=== PATIENT | female | born 1950 | race Caucasian/White ===

== ENCOUNTER 2025-09-08 09:16 | Observation (INO) ==
--- NOTE | 2025-08-05 12:58 | PAT Medication Instructions ---
Medication Instructions Date of Service August 05, 2025 Home Medications Medication Instructions Recorded albuterol sulfate 90 mcg/actuation See Rx Instructions inhalation 12/12/24 aerosol inhaler (Ventolin HFA) .COMPLEX PRN shortness of breath or wheezing #18 grams triamcinolone acetonide 0.1 % 1 applic topical .COMPLEX #30 grams 03/04/25 topical ointment nystatin 100,000 unit/gram topical 1 applic topical TID PRN rash #90 06/06/25 cream tubes estradiol 0.01% (0.1 mg/gram) 1 g vaginal 2XWK #42.5 grams 07/22/25 vaginal cream aspirin 81 mg tablet,delayed release 81 mg PO HS omega-3 fatty acids 1,000 mg capsule (Fish Oil Concentrate) 1,000 mg PO QAM latanoprost (PF) 0.005 % eye drops 1 drp ophthalmic (eye) HS vitamin E (dl, acetate) 180 mg (400 unit) capsule 400 unit PO QAM mecobalamin (vitamin B12) 1,000 mcg chewable tablet 1,000 mcg PO QAM cholecalciferol (vitamin D3) 25 mcg (1,000 unit) capsule 2,000 unit PO QAM albuterol sulfate 90 mcg/actuation aerosol inhaler (Ventolin HFA) See Rx Instructions inhalation .COMPLEX PRN triamcinolone acetonide 0.1 % topical ointment 1 applic topical .COMPLEX nystatin 100,000 unit/gram topical cream 1 applic topical TID PRN estradiol 0.01% (0.1 mg/gram) vaginal cream 1 g vaginal 2XWK amlodipine 10 mg tablet 10 mg PO HS candesartan 32 mg tablet 32 mg PO QAM levothyroxine 88 mcg tablet 88 mcg PO QAM pantoprazole 40 mg tablet,delayed release 40 mg PO QAM rosuvastatin 20 mg tablet 20 mg PO HS sertraline 100 mg tablet 100 mg PO QAM Continue as directed albuterol sulfate 90 mcg/actuation aerosol inhaler (Ventolin HFA) See Rx Instructions inhalation .COMPLEX PRN(use if needed; please bring with you to hospital day of surgery if possible) ASK your prescriber and surgeon aspirin 81 mg tablet,delayed release 81 mg PO HS STOP taking 2 weeks before surgery (or as soon as possible if surgery is within 2 weeks) omega-3 fatty acids 1,000 mg capsule (Fish Oil Concentrate) 1,000 mg PO QAM vitamin E (dl, acetate) 180 mg (400 unit) capsule 400 unit PO QAM STOP taking 24 hours before surgery triamcinolone acetonide 0.1 % topical ointment 1 applic topical .COMPLEX nystatin 100,000 unit/gram topical cream 1 applic topical TID PRN estradiol 0.01% (0.1 mg/gram) vaginal cream 1 g vaginal 2XWK DO NOT take the morning of surgery mecobalamin (vitamin B12) 1,000 mcg chewable tablet 1,000 mcg PO QAM cholecalciferol (vitamin D3) 25 mcg (1,000 unit) capsule 2,000 unit PO QAM candesartan 32 mg tablet 32 mg PO QAM Take morning of surgery With a small sip of water, OTHERWISE NOTHING TO EAT OR DRINK AFTER MIDNIGHT: levothyroxine 88 mcg tablet 88 mcg PO QAM pantoprazole 40 mg tablet,delayed release 40 mg PO QAM sertraline 100 mg tablet 100 mg PO QAM Take evening before surgery latanoprost (PF) 0.005 % eye drops 1 drp ophthalmic (eye) HS amlodipine 10 mg tablet 10 mg PO HS rosuvastatin 20 mg tablet 20 mg PO HS Other Notes If you have any questions please call us at [phone] or [phone] or [phone] or [phone]
--- NOTE | 2025-08-11 10:46 | Anesthesiology Consultation ---
Date of Service August 11, 2025 Assessment & Plan (1) Encounter for pre-operative examination: - Check BSG DOS - Infectious disease screening: Per assessment on 08/11/25- No known recent infectious disease contacts or current infectious disease symptoms. - Outpatient joint assessment: Pt currently scheduled for inpatient pathway. If surgeon requests review for outpatient joint pathway, patient is not a recommended candidate for outpatient joint program from anesthesia standpoint based on available information. Chart Review Chart Review: Acceptable Risk for Surgery and Patient seen in Pre Admission Testing Teaching & Discussion Pre-Anesthesia Teaching/Discussion Notes: Instructed NPO after midnight before surgery,except medications with 15 cc of water. Medication instructions provided according to the PAT guidelines. History Surgery Operation Date: 09/08/25 09:00 Proposed Procedures p Robotic Assisted Left Total Knee Arthroplasty - Soy Lopez DO Height/Weight Height: 5 ft 2 in Weight: 95.2 kg Allergies Allergy/AdvReac Type Severity Reaction Status Date / Time No Known Drug Allergies Allergy Verified 08/05/25 10:50 Medications Home Medications Medication Instructions Recorded Confirmed Last Taken aspirin 81 mg tablet,delayed 81 mg PO HS 09/21/20 08/05/25 Unknown release omega-3 fatty acids 1,000 mg 1,000 mg PO QAM 09/21/20 08/05/25 Unknown capsule (Fish Oil Concentrate) latanoprost (PF) 0.005 % eye drops 1 drp ophthalmic (eye) HS 10/27/20 08/05/25 Unknown vitamin E (dl, acetate) 180 mg 400 unit PO QAM 10/27/20 08/05/25 Unknown (400 unit) capsule mecobalamin (vitamin B12) 1,000 1,000 mcg PO QAM 05/14/24 08/05/25 Unknown mcg chewable tablet cholecalciferol (vitamin D3) 25 2,000 unit PO QAM 11/15/24 08/05/25 Unknown mcg (1,000 unit) capsule albuterol sulfate 90 mcg/actuation See Rx Instructions inhalation 12/12/24 08/05/25 Unknown aerosol inhaler (Ventolin HFA) .COMPLEX PRN shortness of breath or wheezing #18 grams triamcinolone acetonide 0.1 % 1 applic topical .COMPLEX #30 grams 03/04/25 08/05/25 Unknown topical ointment nystatin 100,000 unit/gram topical 1 applic topical TID PRN rash #90 06/06/25 08/05/25 Unknown cream tubes estradiol 0.01% (0.1 mg/gram) 1 g vaginal 2XWK #42.5 grams 07/22/25 08/05/25 Unknown vaginal cream amlodipine 10 mg tablet 10 mg PO HS 08/05/25 08/05/25 Unknown candesartan 32 mg tablet 32 mg PO QAM 08/05/25 08/05/25 Unknown levothyroxine 88 mcg tablet 88 mcg PO QAM 08/05/25 08/05/25 Unknown pantoprazole 40 mg tablet,delayed 40 mg PO QAM 08/05/25 08/05/25 Unknown release rosuvastatin 20 mg tablet 20 mg PO HS 08/05/25 08/05/25 Unknown sertraline 100 mg tablet 100 mg PO QAM 08/05/25 08/05/25 Unknown Past Medical History Medical History Arthritis of knee Cirrhosis Per remote records, patient denies Unremarkable liver on CT Abdomen/Pelvis 2022 States it is fatty liver, reports her liver enzymes have been normal Depression with anxiety Diabetes mellitus, type 2 Diet controlled GERD (gastroesophageal reflux disease) Hx of gastric ulcer 1970s Hx of motion sickness Hyperlipidemia Hypertension Hypothyroidism IPMN (intraductal papillary mucinous neoplasm) Monitoring with [facility] Recurrent left knee instability Severe obstructive sleep apnea No CPAP currently, uses a dental appliance at night Sjogren's syndrome Exercise / Class Metabolic Activity II 4-5 Yardwork/Stairs/Walk up hill (one FS: No CP, no SOB) Past Family History Family History Father Myocardial infarction Hypertension Mother , age 97 Hypothyroidism Colorectal cancer Hypertension Brother , age 52 Cardiac disorder Grandfather (Paternal) Diabetes Brother Myocardial infarction Pancreatic cyst Aunt Ovarian cancer x 2 Other No family history of adverse response to anesthesia Denies family history of Prostate cancer Breast cancer Past Surgical History Surgical History H/O foot surgery (02/2023) Left foot H/O rectocele repair History of carpal tunnel repair Right hand History of colonoscopy History of ERCP History of esophagogastroduodenoscopy (EGD) PONV (postoperative nausea and vomiting) S/P eye surgery Right eye retinal detachment x2 S/P hysterectomy + Unilateral oophorectomy (R/t cysts, still has 1 ovary) S/P trigger finger release Multiple Past Anesthesia History No Hx of Anesthesia Complications and No Family Hx of Anesthesia Complications History of PONV History of PONV and Hx of Motion Sickness Social History Smoking Status: Never smoker Do You Dip or Chew Tobacco: No Hx Alcohol Use: No Hx Substance Use: No Review of Systems Patient denies chest pain, shortness of breath, dyspnea on exertion, fever, chills, cough, wheezing, palpitations. Physical Exam Vital Signs BP 141/83 P 90 TEMP 97.3 SP02 100%RA RESP 16 Physical Full cervical extension range of motion. Full TMJ range of motion. TMD 3 finger breaths Mallampati Score III Dentition: intact, upper front veneers Lungs: clear throughout to auscultation Cardiac: regular rate and rhythm, no murmurs noted Spine: normal Carotid arteries: negative bruit Extremities: no LE edema Lab Results Anesthesia Preop Results Results Anesthesia Widget: WBC 8.58 K/ul (4.8-10.8) 08/11/25 Hgb 13.6 g/dl (12.0-16.0) 08/11/25 Hct 39.7 % (37.0-47.0) 08/11/25 Plt 284 K/uL (130-400) 08/11/25 Na 141 mmol/L (136-145) 08/11/25 K 4.0 mmol/L (3.5-5.1) 08/11/25 Cl 107 mmol/L (98-107) 08/11/25 CO2 28 mmol/L (21-32) 08/11/25 BUN 26 mg/dl (6-23) H 08/11/25 Creat 1.12 mg/dl (0.6-1.2) 08/11/25 Glucose Level 146 mg/dl (70-99(Fasting)) H 08/11/25 PT 10.6 Seconds (9.0-12.0) 08/11/25 PTT 24 Seconds (21-31) 08/11/25 INR 1.0 (0.9-1.1) 08/11/25 TSH 1.311 uIu/ml (0.300-4.500) 06/26/25 HA1c 6.5 % (4.5-5.6) H 08/11/25 Blood Type O Positive 08/11/25 Antibody Screen NEGATIVE 08/11/25 Testing Electrocardiogram Date: 08/11/25 NSR. 89bpm. CURT. Chest X-Ray Date: 08/11/25 FINDINGS: There is mild cardiomegaly without pulmonary vascular congestion. No consolidation or pleural effusion seen. IMPRESSION: No acute findings.
--- NOTE | 2025-09-04 09:43 | History & Physical Report ---
Date of Service September 04, 2025 Assessment & Plan (1) Left knee DJD: We will proceed with a left total knee arthroplasty. Postoperatively, she will be started on aspirin for DVT prophylaxis and kept overnight in the hospital for postop medical management. She plans to use [facility] at discharge. History of Present Illness Chief Complaint: Osteoarthritis of the left knee. Primary Care Provider: Shirin ReyesDO Serra is a pleasant 74-year-old female who has been dealing with chronic increasing left knee pain. She had an MRI back in October 2024, which showed some medial compartmental arthritis, meniscal tearing, and ACL tear. We have been treating her conservatively. She has had some injections. Unfortunately, the injections are no longer helping. After failing conservative treatment, she has elected to proceed with a left total knee arthroplasty. Allergies Allergy/AdvReac Type Severity Reaction Status Date / Time No Known Drug Allergies Allergy Verified 09/03/25 14:32 Home Medications Medication Instructions Recorded Confirmed Type aspirin 81 mg tablet,delayed 81 mg PO HS 09/21/20 09/03/25 History release omega-3 fatty acids 1,000 mg 1,000 mg PO QAM 09/21/20 09/03/25 History capsule (Fish Oil Concentrate) latanoprost (PF) 0.005 % eye drops 1 drp ophthalmic (eye) HS 10/27/20 09/03/25 History vitamin E (dl, acetate) 180 mg 400 unit PO QAM 10/27/20 09/03/25 History (400 unit) capsule mecobalamin (vitamin B12) 1,000 1,000 mcg PO QAM 05/14/24 09/03/25 History mcg chewable tablet cholecalciferol (vitamin D3) 25 2,000 unit PO QAM 11/15/24 09/03/25 History mcg (1,000 unit) capsule albuterol sulfate 90 mcg/actuation See Rx Instructions inhalation 12/12/24 09/03/25 Rx aerosol inhaler (Ventolin HFA) .COMPLEX PRN shortness of breath or wheezing #18 grams triamcinolone acetonide 0.1 % 1 applic topical .COMPLEX #30 grams 03/04/25 09/03/25 Rx topical ointment nystatin 100,000 unit/gram topical 1 applic topical TID PRN rash #90 06/06/25 09/03/25 Rx cream tubes estradiol 0.01% (0.1 mg/gram) 1 g vaginal 2XWK #42.5 grams 07/22/25 09/03/25 Rx vaginal cream amlodipine 10 mg tablet 10 mg PO HS 08/05/25 09/03/25 History candesartan 32 mg tablet 32 mg PO QAM 08/05/25 09/03/25 History levothyroxine 88 mcg tablet 88 mcg PO QAM 08/05/25 09/03/25 History rosuvastatin 20 mg tablet 20 mg PO HS 08/05/25 09/03/25 History sertraline 100 mg tablet 100 mg PO QAM 08/05/25 09/03/25 History pantoprazole 40 mg tablet,delayed 40 mg PO BID #180 tabs 08/19/25 09/03/25 Rx release valacyclovir 1 gram tablet 1,000 mg PO TID 7 days #21 tabs 09/03/25 09/03/25 Rx Past Med/Surg History Problem List GERD (gastroesophageal reflux disease) Obesity Nocturnal hypoxemia Severe obstructive sleep apnea Left knee DJD B12 deficiency Mixed incontinence Atrophic vaginitis Sjogrens syndrome Lichen sclerosus Urinary incontinence Depression with anxiety Diabetes mellitus, type 2 Hyperlipidemia Hypertension Hypothyroidism Cirrhosis IPMN (intraductal papillary mucinous neoplasm) (06/2020) Medical History Hx of motion sickness Hx of gastric ulcer 1970s IPMN (intraductal papillary mucinous neoplasm) Monitoring with [facility] Severe obstructive sleep apnea No CPAP currently, uses a dental appliance at night Sjogren's syndrome Hypothyroidism Diabetes mellitus, type 2 Diet controlled Hyperlipidemia Hypertension Depression with anxiety Cirrhosis Per remote records, patient denies Unremarkable liver on CT Abdomen/Pelvis 2022 States it is fatty liver, reports her liver enzymes have been normal Arthritis of knee Recurrent left knee instability Surgical History PONV (postoperative nausea and vomiting) History of ERCP History of esophagogastroduodenoscopy (EGD) History of colonoscopy H/O foot surgery (02/2023) Left foot S/P trigger finger release Multiple S/P eye surgery Right eye retinal detachment x2 History of carpal tunnel repair Right hand H/O rectocele repair S/P hysterectomy + Unilateral oophorectomy (R/t cysts, still has 1 ovary) Family History Father Myocardial infarction Hypertension Mother , age 97 Hypothyroidism Colorectal cancer Hypertension Brother , age 52 Cardiac disorder Grandfather (Paternal) Diabetes Brother Myocardial infarction Pancreatic cyst Aunt Ovarian cancer x 2 Other No family history of adverse response to anesthesia Denies family history of Prostate cancer Breast cancer Social History Smoking Status: Never smoker Second Hand Exposure: No; Do You Dip or Chew Tobacco: No; Hx Alcohol Use: No Hx Substance Use: No Preferred Language: [place] Communication Ability: Effective Visual Impairment: No Limitations Hearing Ability: Normal 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 Beliefs That Will Affect Care: None marital status: / Current Living Situation: Alone current occupational status: retired current occupation: retired from [employer] How many Children do You have: 1 Feels Safe at Home: Yes Childhood Exposure to Second-Hand Smoke: No Diet: regular Diet Comment: regular caffeine: Yes during the past year weight has: remained stable Dental Care, Regularly: Yes Physical Activity Frequency: Daily Physical Activity Frequency Comment: local gym, swimming, exercise classes Seatbelt Use: always Sunscreen Use: Yes Review of Systems All systems reviewed & are unremarkable except as noted in HPI & below. Physical Exam On physical exam of the left knee, she has a slight varus deformity. Tenderness palpation of the distal medial femoral condyle and over the medial joint line.. Constitutional WD/WN, vitals as above Eyes PERRL, conjunctivae normal, anicteric sclerae ENMT external ear and nose normal, oropharynx normal Neck trachea midline, no thyromegaly Respiratory normal respiratory effort Cardiovascular RRR, no murmur, no edema Gastrointestinal (Abdomen) normal bowel sounds, soft, nontender, no hepatosplenomegaly Psychiatric A+Ox3, euthymic affect Results & Data Results & Data Laboratory Results . Diagnostic Findings . PG Care Time/CCT Total # of Minutes Spent Total Time Spent with Patient: Total time spent is greater than 50% in coordination of care (as documented) at patient's floor/unit and/or counseling patient: Coding Level of Care Code None Diagnoses Left knee DJD M17.12
[~2025-09-08 09:16] MED LIST: PROPOFOL IV EMULSION 10 MG/ML 100 ML VIAL IV ONE; ROPIVACAINE 0.5% 5 MG/ML 30 ML VIAL ONE
[2025-09-08] MEDS: LR 500ML BOLUS, THEN 15ML/HR IV SCH (10:02)
[2025-09-08] MEDS: LR 60ML/HR IV SCH (10:03)
[2025-09-08] MEDS: FAMOTIDINE 20 MG TAB PO SCH (10:04)
[2025-09-08] MEDS: ACETAMINOPHEN 500 MG TAB PO SCH ×2 (10:04→15:36)
[2025-09-08] MEDS: dexAMETHasone**PF** 10 MG/ML VIAL IV SCH (10:04)
[2025-09-08] MEDS: GABAPENTIN 300 MG CAP PO SCH (10:04)
[2025-09-08] MEDS ORDERED: LIDOCAINE 2% 2 ML VIAL/AMP(20MG/ML) INFIL ONE (10:11)
[2025-09-08] MEDS ORDERED: MIDAZOLAM HCL 1 MG/ML 2ML VIAL ONE (10:11)
--- NOTE | 2025-09-08 10:26 | History & Physical Bridge Note ---
Date of Service September 08, 2025 History & Physical Bridge Note I have examined the patient, reviewed the History & Physical and in the interval since the performance of the History & Physical I have noted the following changes of clinical significance: no changes noted
[2025-09-08] MEDS ORDERED: ONDANSETRON INJ 2 MG/ML 2 ML VIAL IV PRN ×3 (10:59→15:04)
[2025-09-08] MEDS ORDERED: HYDROmorphone INJ 1 MG/ML SYRINGE IV PRN ×2 (10:59→12:02)
[2025-09-08] MEDS ORDERED: ATROPINE SULFATE 0.1 MG/ML 10ML SYR IV PRN ×2 (10:59→12:02)
[2025-09-08] MEDS: TRANEXAMIC ACID 1,000 MG **IV Pre-op IV SCH (11:30)
[2025-09-08] MEDS: ROPIV 0.5% 246mg, Ketorolac 30mg, EPINEPHrine 0.5mg in NSS INFIL SCH (12:21)
[2025-09-08] MEDS: ORTHO JOINT ANESTHETIC ONE (12:22)
--- NOTE | 2025-09-08 12:55 | Operative Report ---
PG Post Operative Report Pre & Post Diagnosis Operation Date: 09/08/25 11:00 Pre-Op Diagnosis: Left Knee Arthritis Post-Op Diagnosis: Left Knee Arthritis I identified the patient and participated in the time-out.: Yes Procedure Operation Date: 09/08/25 11:00 Actual Procedures p Robotic Assisted Left Total Knee Arthroplasty(Left) - Soy Lopez DO Surgeon Soy Lopez DO Pmo Consultant Jessica Desai PA-C Estimated Blood Loss 30 Findings Consistent with Post-Op Diagnosis Specimens Left femoral and tibial bone Description of Procedure Implants used: I used a Phan Persona total knee arthroplasty system with a size 6 standard PS femur, C tibia, 29 patella, and a size 12 CPS polyethylene bearing. All components were press-fit in place. Maryse arrived [facility] for the above procedure. She was seen in the preoperative holding area and the operative extremity was identified and signed. She was given a preoperative antibiotic, TXA, a spinal anesthetic and an adductor nerve block. She was taken back to the operating room and laid on the table in supine position. She was given basic sedation. The operative knee was then prepped and draped in sterile fashion. A timeout was done, and the patient and the operative extremity was properly identified. A midline incision was made directly over the patella. Dissection was taken down to the extensor mechanism. A medial parapatellar arthrotomy was used. The medial retinaculum was released and the fat pad was mostly excised. The knee was flexed and the ACL, PCL, and meniscus were removed. The alignment of the knee replacement was assisted with a [place] 100e robotic knee. The femoral array was pinned in the distal femur and the tibial array was pinned using a percutaneous technique in the upper shaft of the tibia. The robot was appropriately calibrated and the structure of the knee was mapped out. The components were then manipulated on the screen to account for any malalignment and to assist in gap balancing. Once I was happy with the placement of the components on the screen, a distal femoral cutting guide was brought in place. The distal femur was then resected. The femur measured to be a size 6. A 4-in-1 cutting block was then put into place by the robot and 2 peg holes were drilled. The 4-in-1 cutting block was then impacted into place and anterior, posterior, and chamfer cuts were made. The cutting block was then brought down to the tibia and pinned into place. The proximal tibia was then resected. The posterior aspect of the knee was then opened up and any additional meniscus fragments and osteophytes were removed. The tibia measured to be a size C. The tibial plate was then placed in the appropriate rotation and the tibia was drilled and punched. Trial components were then placed. The patella was then everted and 9 mm was resected off the posterior aspect of the patella. The patella measured to be a size 29. 3 peg holes were then drilled. A trial patella was placed. A size 12 CPS polyethylene insert was then trialed. The knee was brought through a full range of motion and felt to be stable. Trial components were then removed. The surrounding soft tissues were injected with 100 cc of an orthopedic pain control cocktail. All components were then press-fit into place. The final polyethylene insert was then snapped into place. The tourniquet was deflated. Hemostasis was obtained. A dilute betadyne lavage was then done for 3 minutes. The joint was then irrigated with normal saline solution. The medial parapatellar arthrotomy was then closed with #1 Vicryl suture. The skin was closed with 2-0 Vicryl, 3-0V lock suture, and [place] Zipline. A soft compressive dressing was placed. She was then transferred to a hospital bed and taken to the postanesthesia care unit in stable condition. She tolerated the procedure well. Jessica Desai PA-C, was present for the entire procedure. He was critical for patient positioning, prepping, draping, retraction exposure, wound closure and application of sterile dressing. I attest to the content of the Intraoperative Record and any orders documented therein. Any exceptions are noted below.
--- NOTE | 2025-09-08 13:50 | XRay Report ---
XR knee LT 1 or 2V routine HISTORY: 74 years-old Female Surgical Post Op left knee arthroplasty COMPARISON: None TECHNIQUE: 2 views of the left knee FINDINGS: Total joint arthroplasty and patellar resurfacing. Expected postoperative soft tissue swelling with d eep tissue air. No acute fracture, dislocation or unexpected opaque foreign body. IMPRESSION: Satisfactory alignment of the total joint arthroplasty. ACT 112: Negative or not required by law. The above report was generated using voice recognition software. It may contain grammatical, syntax o r spelling errors. Electronically signed by: Giovany Fine M.D. 09/08/2025 1:49 PM
--- NOTE | 2025-09-08 14:48 | Anesthesiology Progress Note ---
Date of Service September 08, 2025 Anesthesia Post Procedure Vital Signs Vital Signs: Temp Pulse Resp BP Pulse Ox O2 Del Method O2 Flow Rate 09/08/25 14:30 100 H 20 121/69 95 Room Air 09/08/25 14:15 92 H 18 133/76 99 Room Air 09/08/25 14:00 94 H 22 121/88 94 Room Air 09/08/25 13:50 36.3 C L 90 16 129/74 98 Room Air 09/08/25 13:40 93 H 20 135/73 97 Room Air 09/08/25 13:30 92 H 18 140/72 96 Room Air 09/08/25 13:22 36.6 C 100 H 14 141/66 H 97 Oxymask 6 09/08/25 09:43 36.6 C 91 H 18 148/80 H 98 Room Air Transfer of Care Handoff Completed per policy Notes Mental Status: alert / awake / arousable and participated in evaluation Patient Amnestic to Procedure: Yes Nausea / Vomiting: adequately controlled Pain: adequately controlled Airway Patency, RR, SpO2: stable & adequate BP & HR: stable & adequate Hydration State: stable & adequate Anesthetic Complications: no major complications apparent and Pt Satisfied with anesthetic care
[2025-09-08] MEDS: SODIUM CHLORIDE 0.9% 1,000 ML IV SCH (14:55)
[2025-09-08] MEDS ORDERED: diphenhydrAMINE Capsule 25 MG CAP PO PRN (15:04)
[2025-09-08] MEDS ORDERED: MAGNESIUM HYDROXIDE SUSP 30 ML UDC PO PRN (15:04)
[2025-09-08] MEDS ORDERED: METOCLOPRAMIDE HCL INJ 5 MG/ML 2 ML VIAL IV PRN (15:04)
[2025-09-08] MEDS ORDERED: NALOXONE HCL 0.4 MG/1 ML VIAL/CARP IV PRN (15:04)
[2025-09-08] MEDS: KETOROLAC TROMETHAMINE 15 MG/ML VIAL IV SCH (15:36)
[2025-09-08] MEDS: SENNA 8.6 MG TAB PO SCH (20:38)
[2025-09-08] MEDS: DOCUSATE SODIUM 100 MG CAP PO SCH (20:38)
[2025-09-08] MEDS: ASPIRIN 81 MG ECTAB PO SCH (20:40)
[2025-09-08] MEDS: ROSUVASTATIN CALCIUM 20 MG TAB PO SCH (20:40)
[2025-09-08] MEDS: LATANOPROST 0.005% OP SOLN 2.5 ML BTL OP SCH (20:42)
[2025-09-09] MEDS: LEVOTHYROXINE SODIUM 88 MCG TABLET PO SCH (06:24)
[2025-09-09 08:00] VITALS: RESP 16
[2025-09-09 08:17] VITALS: TEMP 97.9
[2025-09-09] MEDS: CYANOCOBALAMIN (B-12) 500 MCG TABLET PO SCH (08:25)
[2025-09-09] MEDS: SERTRALINE HCL 100 MG TABLET PO SCH (08:25)
[2025-09-09] MEDS: OMEGA-3 (PURIFIED FISH OIL) 1 GM CAP PO SCH (08:25)
[2025-09-09] MEDS: MULTIVITAMIN TAB PO SCH (08:26)
[2025-09-09] MEDS: LOSARTAN POTASSIUM 50 MG TAB PO SCH (08:26)
[2025-09-09] MEDS: TOCOPHERYL, DL-ALPHA 400 UNITS 180 MG CAP PO SCH (08:26)
[2025-09-09] MEDS: CHOLECALCIFEROL 25 MCG (1000 UNITS) TAB PO SCH (08:26)
--- NOTE | 2025-09-09 09:06 | Orthopedic Progress Note ---
Date of Service September 09, 2025 Assessment & Plan (1) Status post total left knee replacement: * Continue Current Treatment * Disposition: home * Daily treatment: Physical Therapy/ Occupational Therapy per protocol * Weight bearing status: WBAT * Continue to monitor for ABLA * Pain control * DVT prophylaxis, ASA * Office/hospital f/u 2 weeks for progress check and staple/suture removal * Plan for discharge today pending PT/OT clearance Subjective . Active Problems: S/p left TKA POD 1 74 y/o female s/p left TKA. Doing well overall, pain managed and improved function. Denies fever/chills, chest pain/SOB, nausea/vomiting. Otherwise no complaints. Review of Systems All systems reviewed & are unremarkable except as noted in HPI & below. Physical Exam . * General: Alert and oriented, no acute distress * Constitutional: well-developed, well-nourished. * Respiratory: Normal respiratory effort, no distress * Gastrointestinal: No tenderness to palpation, no rigidity or guarding. * Skin: No rash or lesion. * Neurologic: Grossly normal * Musculoskeletal: left knee surgical dressing CDI, not removed for exam. Otherwise no obvious deformity or overlying skin changes RLE. Diffuse TTP distal thigh and knee region. Otherwise no specific tenderness of proximal thigh, lower leg, foot/ankle. AROM knee flexion 100 degrees. AROM foot/ankle intact. Sensation intact plantar/dorsal foot. Brisk capillary refill. Results & Data Results & Data Laboratory Results . Diagnostic Findings . Knee X-Ray 09/08/25 13:24 XR knee LT 1 or 2V routine HISTORY: 74 years-old Female Surgical Post Op left knee arthroplasty COMPARISON: None TECHNIQUE: 2 views of the left knee FINDINGS: Total joint arthroplasty and patellar resurfacing. Expected postoperative soft tissue swelling with deep tissue air. No acute fracture, dislocation or unexpected opaque foreign body. IMPRESSION: Satisfactory alignment of the total joint arthroplasty. ACT 112: Negative or not required by law. The above report was generated using voice recognition software. It may contain grammatical, syntax or spelling errors. Electronically signed by: Giovany Fine M.D. 09/08/2025 1:49 PM PG Care Time/CCT Total # of Minutes Spent Total Time Spent with Patient: Total time spent is greater than 50% in coordination of care (as documented) at patient's floor/unit and/or counseling patient: Coding Level of Care Code 48910 Post Operative Follow-Up Diagnoses Status post total left knee replacement Z96.652
[2025-09-09 11:00] VITALS: BP 136/80; PULSE 84; O2SAT 100
== END 2025-09-09 13:04 | disposition home or self-care (01) ==
LOC: ASU 09:16 → 3E 09:16